=== PATIENT | male | born 1970 | race Caucasian/White ===

== ENCOUNTER → 2017-02-13 | Outpatient (REF) | payer BC ==
[~2017-02-13] MED LIST: FISH100049 PO; LISI20TA PO
[2017-02-13 20:41] LABS: ALBUMIN 4.3 GM/DL (3.2-5.2); ALBUMIN/GLOBULIN RATIO 1.39 (1.00-1.93); ALKALINE PHOSPHATASE 71 U/L (45-117); ALT/SGPT 90 U/L (12-78); ANION GAP 10 MEQ/L (8-16); AST/SGOT 60 U/L (15-37); BILIRUBIN,TOTAL 0.9 MG/DL (0.2-1.0); BLOOD UREA NITROGEN 21 MG/DL (7-18); CALCIUM LEVEL 9.1 MG/DL (8.5-10.1); CARBON DIOXIDE LEVEL 29 MEQ/L (21-32); CHLORIDE LEVEL 101 MEQ/L (98-107); CHOLESTEROL LEVEL 234 MG/DL (<200); CREATININE FOR GFR 1.03 MG/DL (0.70-1.30); GLOMERULAR FILTRATION RATE > 60.0 (>60); GLUCOSE, FASTING 67 MG/DL (70-105); MAGNESIUM LEVEL 2.2 MG/DL (1.8-2.4); POTASSIUM SERUM 3.4 MEQ/L (3.5-5.1); SODIUM LEVEL 140 MEQ/L (136-145); TOTAL PROTEIN 7.4 GM/DL (6.4-8.2); TRIGLYCERIDES LEVEL 207 MG/DL (<150)
== END ==
LOC: M SFHCPLAZ 15:15
PROVIDERS: ATTEND Internal Medicine
DX: E78.00 Pure hypercholesterolemia, unspecified (principal); I10 Essential (primary) hypertension

== ENCOUNTER 2017-04-10 12:44 | Day surgery (SDC) | payer BC ==
[~2017-04-10] VITALS: Ht 185.4 cm; Wt 115.7 kg
[2017-04-10] MEDS ORDERED: LR 1,000 ML IV SCH ×3 (13:00→19:15)
[2017-04-10] MEDS ORDERED: fentaNYL 100 MCG/2 ML INJECTION (J3010) As Ordered ONE ×2 (15:57→17:10)
[2017-04-10] MEDS ORDERED: MIDAZOLAM INJ 2 MG/2 ML VIAL (J2250) As Ordered ONE (15:57)
[2017-04-10] MEDS ORDERED: BUPIVACAINE HCL 0.5% 10 ML VIAL As Ordered ONE (16:05)
[2017-04-10] MEDS ORDERED: METOCLOPRAMIDE INJ 10MG/2ML VIAL (J2765) As Ordered ONE (17:09)
[2017-04-10] MEDS ORDERED: LIDOCAINE 2% INJ 100 MG/5 ML SDV (FOR ANES.) As Ordered ONE (17:09)
[2017-04-10] MEDS ORDERED: ONDANSETRON 4MG/2ML VIAL (J2405) As Ordered ONE (17:09)
[2017-04-10] MEDS ORDERED: PROPOFOL 200 MG/20 ML VIAL As Ordered ONE (17:09)
[2017-04-10] MEDS ORDERED: MORPHINE 2 MG/ML 1ML SYRINGE IV PRN (19:15)
[2017-04-10] MEDS ORDERED: METOCLOPRAMIDE INJ 10MG/2ML VIAL (J2765) IV PRN (19:15)
[2017-04-10] MEDS ORDERED: ONDANSETRON 4MG/2ML VIAL (J2405) IV PRN (19:15)
[2017-04-10] MEDS: PERCOCET 5MG/325MG TAB PO PRN ×2 (19:20→19:49)
[2017-04-10] MEDS: fentaNYL 100 MCG/2 ML INJECTION (J3010) IV PRN ×4 (19:20→19:41)
[2017-04-10 21:00] VITALS: BP 161/78
--- NOTE | 2017-04-11 06:51 | RO ---
DATE OF PROCEDURE: 04/10/2017 PREPROCEDURE DIAGNOSIS: Right distal biceps tendon rupture. POSTPROCEDURE DIAGNOSIS: Right distal biceps tendon rupture. PROCEDURE: Right open distal biceps tendon repair. SURGEON: Dr. Gopi Nation. CONE SEWER: Dr. Betsey Schneider. ANESTHESIA: General. IV FLUIDS: Lactated ringers. ESTIMATED BLOOD LOSS: 50 mL. IMPLANTS: Arthrex distal biceps tendon button and interference screw. CLOSURE: Nylon. INDICATION: Marbin is a 46-year-old male that suffered a right elbow injury while pushing a heavy log on 03/30/2017. He felt a pop and had immediate asymmetry in his upper arm. Physical exam demonstrated a positive hook test and weakness with supination. An MRI was ordered which showed a distal biceps tendon rupture. Given his young age and activity level, after discussing operative and nonoperative management, we agreed on operative management. We discussed the risks and benefits of distal biceps tendon repair and written informed consent was obtained. PROCEDURE: The patient was identified in preoperative holding area and the right arm was initialed by myself. He was brought to the operating room and placed supine on a well padded OR table. General anesthesia induced without complication. Appropriate IV antibiotics were given within 1 hour of incision. The right arm was positioned on a hand table. The right arm was then prepped and draped in the normal sterile fashion. Prior to incision, a time out was performed in which myself and all OR staff confirmed the patient's name, medical record number, date of and the correct side, site and procedure. A 3 cm transverse incision was made with the 15 blade about three fingerbreadths distal to the elbow flexion crease. Superficial dissection with Metzenbaum scissors and electrocautery for hemostasis. Superficial fascia was opened with Metzenbaum scissors. The interval between the brachial radialis and pronator was developed with Metzenbaum scissors and then with blunt dissection as the forearm was held in supination, I was able to palpate the radial tuberosity. [place] retractors positioned taking care to avoid excess traction on the lateral antebrachial cutaneous nerve. A [place] elevator was used to palpate the tuberosity and then a [place] elevator used to clear remaining biceps tendon and fascia off the tuberosity. There was one thin strand about 4 mm thickness of tendon and tendon sheath on the far ulnar aspect of the tuberosity but otherwise the tuberosity was bare. Blunt dissection in the antecubital fossa to palpate the tendon but I was unable to do so. Given that this was already 12 days out, I made a second transverse incision about 1.5 cm in length three fingerbreadths proximal to the elbow flexion crease. There was already a rent in the overlying fascia and I was able to immediately identify the ruptured end of the biceps tendon. The tendon was retrieved through the proximal incision and degenerative fatty tissue was trimmed to a more normal appearing tendon. The Arthrex distal biceps kit was opened and the fiber loop used to place a running locking whip stitch through the distal 2.5 cm of the tendon. The FiberWire sutures were then passed from the proximal to the distal incision where they were loaded through the button per routine. The forearm was held in supination and [place] retractors placed and the speed tip guide pin was drilled unicortically into the radial tuberosity. Position was checked on the mini C-arm and it was touched distal and ulnar so it was repositioned so it was just distal to the mid point and still ulnar to the mid point. The patient's radial tuberosity was actually quite ulnar requiring significant supination. The guide pin was then drilled bicortically in this better position and the 8 mm cannulated reamer was used to create a unicortical socket. Then extensive irrigation to remove bony debris. The button was then passed with its internist medical doctor md through the drill hole and the sutures were toggled which flipped the button. The elbow was flexed to 30 degrees and the tendon was docked into the socket. A free needle was used to pass one limb of the FiberWire back through the tendon and lock the construct in place. Knots were tied by hand. The tenodesis truck driver's offsider was then used to pass a limb of the FiberWire through the truck driver's offsider the tenodesis screw was inserted. The screw was positioned at the radial aspect in the drill hole which placed the final position of the tendon at the far ulnar aspect. There was good fixation of the screw. FiberWire sutures were again tied over the screw and then trimmed and discarded. Both incisions were then extensively irrigated with normal saline. Incisions were closed with #2-0 Vicryl for the forearm fascia and then subcuticular #2-0 Vicryl and a running #3-0 Nylon. Proximal incision was closed with #2-0 Vicryl and #3-0 Nylon. I injected 10 mL of 0.50% Marcaine without epinephrine. No tourniquet was used. Bulky sterile bandage applied. The patient was placed into a well padded posterior long arm splint, placed into a sling. All counts correct times two. COMPLICATIONS: None. DISPOSITION: The patient was transferred to the postanesthesia care unit in stable condition.
--- NOTE | 2017-04-11 08:03 | REP ---
Intraoperative fluoroscopic views during surgery for ruptured biceps tendon. There are a total of three views. Fluoroscopic exposure time is 19.8 seconds. Fluoroscopic images are performed with last image hold technology. These images require no additional radiation. Signed by Alex Vargas MD 04/11/2017 07:55 A
== END 2017-04-10 21:10 | disposition home or self-care (01) ==
LOC: M SDC 12:44
PROVIDERS: ATTEND Orthopaedic Surgery
DX: S46.211A Strain of muscle, fascia and tendon of other parts of biceps, right arm, initial encounter (principal); X50.0XXA Overexertion from strenuous movement or load, initial encounter; Y92.89 Other specified places as the place of occurrence of the external cause; Y99.9 Unspecified external cause status; I10 Essential (primary) hypertension; Z79.899 Other long term (current) drug therapy; Y93.89 Activity, other specified
CPT/HCPCS: 24342; 73030; C1713; J0690; J2250; J2405; J2765; J3010

== ENCOUNTER → 2017-08-19 | Outpatient (REF) | payer BC ==
[2017-08-19 12:26] LABS: ALBUMIN/GLOBULIN RATIO 1.25 (1.00-1.93); ALKALINE PHOSPHATASE 77 U/L (45-117); ALT/SGPT 71 U/L (12-78); ANION GAP 7 MEQ/L (8-16); AST/SGOT 84 U/L (7-37); BILIRUBIN,TOTAL 0.6 MG/DL (0.2-1.0); BLOOD UREA NITROGEN 21 MG/DL (7-18); CALCIUM LEVEL 8.7 MG/DL (8.5-10.1); CARBON DIOXIDE LEVEL 30 MEQ/L (21-32); CHLORIDE LEVEL 103 MEQ/L (98-107); CHOLESTEROL LEVEL 181 MG/DL (<200); CHOLESTEROL RISK RATIO 4.525 (<5); CREATININE FOR GFR 1.02 MG/DL (0.70-1.30); GLOMERULAR FILTRATION RATE > 60.0 (>60); GLUCOSE, FASTING 99 MG/DL (70-100); HDL CHOLESTEROL 40 MG/DL (>40); LDL CHOLESTEROL 95.4 MG/DL (<100); MAGNESIUM LEVEL 2.1 MG/DL (1.8-2.4); NON-HDL-C 141 MG/DL; POTASSIUM SERUM 4.2 MEQ/L (3.5-5.1); SODIUM LEVEL 140 MEQ/L (136-145); TOTAL PROTEIN 7.2 GM/DL (6.4-8.2); TRIGLYCERIDES LEVEL 228 MG/DL (<150)
[2017-08-21 10:50] LABS: HEPATITIS C VIRUS ABY INDEX 0.1 INDEX (<0.8)
== END ==
LOC: M SFHCPLAZ 07:42
DX: I10 Essential (primary) hypertension (principal); K76.0 Fatty (change of) liver, not elsewhere classified; E78.00 Pure hypercholesterolemia, unspecified
CPT/HCPCS: 83735

== ENCOUNTER → 2018-11-17 | Outpatient (REF) | payer BC ==
[2018-11-17 13:17] LABS: ALBUMIN 4.2 GM/DL (3.2-5.2); ALT/SGPT 63 U/L (12-78); BILIRUBIN,TOTAL 0.7 MG/DL (0.2-1.0); BLOOD UREA NITROGEN 20 MG/DL (7-18); CALCIUM LEVEL 8.8 MG/DL (8.5-10.1); CARBON DIOXIDE LEVEL 29 MEQ/L (21-32); CHLORIDE LEVEL 105 MEQ/L (98-107); CHOLESTEROL LEVEL 207 MG/DL (<200); CREATININE FOR GFR 1.11 MG/DL (0.70-1.30); GLOMERULAR FILTRATION RATE > 60.0 (>60); GLUCOSE, FASTING 103 MG/DL (70-100); HDL CHOLESTEROL 45 MG/DL (>40); LDL CHOLESTEROL 122 MG/DL (<100); MAGNESIUM LEVEL 2.1 MG/DL (1.8-2.4); NON-HDL-C 162 MG/DL; POTASSIUM SERUM 4.4 MEQ/L (3.5-5.1); SODIUM LEVEL 139 MEQ/L (136-145); TRIGLYCERIDES LEVEL 202 MG/DL (<150)
== END ==
LOC: M SFHCPLAZ 08:06
PROVIDERS: ATTEND Internal Medicine
DX: I10 Essential (primary) hypertension (principal); E78.00 Pure hypercholesterolemia, unspecified

== ENCOUNTER 2019-01-15 07:17 | Day surgery (SDC) | payer BC ==
[~2019-01-15] VITALS: Ht 185.4 cm; Wt 120.2 kg
[~2019-01-15 07:17] MED LIST changes: +NS 1,000 ML IV ONE; +PROPOFOL 200 MG/20 ML VIAL As Ordered ONE
--- NOTE | 2019-01-15 08:53 | ROOR ---
Patient Name: Marbin Matias Procedure Date: 01/15/2019 8:29 AM Date of : 1970 Age: 48 Room: [facility] Gender: Male Note Status: Finalized Procedure: Colonoscopy Indications: High risk colon cancer surveillance: Personal history of colonic polyps, Family history of advanced adenoma of the colon in a first-degree relative Providers: Dyllan GONZALEZ MD Referring MD: Stanley Smith MD Requesting Provider: Medicines: Monitored Anesthesia Care Complications: No immediate complications. Procedure: Pre-Anesthesia Assessment: - The heart rate, respiratory rate, oxygen saturations, blood pressure, adequacy of pulmonary ventilation, and response to care were monitored throughout the procedure. The Colonoscope was introduced through the anus and advanced to the terminal ileum, with identification of the appendiceal orifice and IC valve. The colonoscopy was performed without difficulty. The patient tolerated the procedure well. The quality of the bowel preparation was good. Findings: The perianal and digital rectal examinations were normal. Small Internal Hemorrhoids. The entire examined colon appeared normal on direct and retroflexion views. Impression: - Small Internal Hemorrhoids. - The entire examined colon is normal on direct and retroflexion views. - No specimens collected. Recommendation: - Repeat colonoscopy in 5 years for screening purposes. Dyllan Gonzalez MD Dyllan GONZALEZ MD 01/15/2019 8:53:38 AM Electronically signed by Dyllan GONZALEZ MD Number of Addenda: 0 Note Initiated On: 01/15/2019 8:29 AM Estimated Blood Loss: Estimated blood loss: none.
[2019-01-15 09:10] VITALS: BP 139/87
== END 2019-01-15 09:29 | disposition home or self-care (01) ==
LOC: M OPP 07:17
PROVIDERS: ATTEND Internal Medicine Gastroenterology
DX: K64.8 Other hemorrhoids (principal); Z79.899 Other long term (current) drug therapy; Z12.11 Encounter for screening for malignant neoplasm of colon; Z86.010 Personal history of colon polyps; Z83.71 Family history of colonic polyps

== ENCOUNTER → 2019-07-21 | Outpatient (REF) | payer BC ==
[~2019-07-21] MED LIST changes: -LISI20TA PO; +LISI20TA19 PO; -NS 1,000 ML IV ONE; -PROPOFOL 200 MG/20 ML VIAL As Ordered ONE
[2019-07-21 12:11] LABS: ALBUMIN 4.1 GM/DL (3.2-5.2); ALT/SGPT 69 U/L (12-78); BILIRUBIN,TOTAL 0.9 MG/DL (0.2-1.0); BLOOD UREA NITROGEN 25 MG/DL (7-18); CALCIUM LEVEL 9.3 MG/DL (8.5-10.1); CARBON DIOXIDE LEVEL 28 MEQ/L (21-32); CHLORIDE LEVEL 101 MEQ/L (98-107); CHOLESTEROL LEVEL 191 MG/DL (<200); CHOLESTEROL RISK RATIO 5.162 (<5); CREATININE FOR GFR 1.18 MG/DL (0.70-1.30); GLOMERULAR FILTRATION RATE > 60.0 (>60); GLUCOSE, FASTING 96 MG/DL (70-100); HDL CHOLESTEROL 37 MG/DL (>40); LDL CHOLESTEROL 106 MG/DL (<100); MAGNESIUM LEVEL 2.3 MG/DL (1.8-2.4); NON-HDL-C 154 MG/DL; SODIUM LEVEL 138 MEQ/L (136-145); TOTAL PROTEIN 7.5 GM/DL (6.4-8.2); TRIGLYCERIDES LEVEL 239 MG/DL (<150)
== END ==
LOC: M LABWUC 10:08
PROVIDERS: ATTEND Internal Medicine
DX: I10 Essential (primary) hypertension (principal); E78.00 Pure hypercholesterolemia, unspecified

== ENCOUNTER → 2020-04-07 | Outpatient (CLI) | payer BC ==
[~2020-04-07] MED LIST changes: -LISI20TA19 PO; +LISI20TA35 PO
[2020-04-07 11:06] LABS: HEMATOCRIT 50.6 % (42.0-52.0); HEMOGLOBIN 17.1 g/dl (13.5-17.5); MEAN CORPUSCULAR HEMOGLOBIN 30.2 pg (27.0-33.0); MEAN CORPUSCULAR HGB CONC 33.8 g/dl (32.0-36.5); MEAN CORPUSCULAR VOLUME 89.4 fl (80.0-96.0); PLATELET COUNT, AUTOMATED 218 10^3/uL (150-450); RED BLOOD COUNT 5.66 10^6/uL (4.30-6.10); WHITE BLOOD COUNT 6.2 10^3/uL (4.0-10.0)
[2020-04-07 11:29] LABS: ALBUMIN 4.1 GM/DL (3.2-5.2); ALT/SGPT 81 U/L (12-78); BILIRUBIN,TOTAL 0.7 MG/DL (0.2-1.0); BLOOD UREA NITROGEN 21 MG/DL (7-18); CALCIUM LEVEL 9.2 MG/DL (8.5-10.1); CARBON DIOXIDE LEVEL 30 MEQ/L (21-32); CHLORIDE LEVEL 105 MEQ/L (98-107); CHOLESTEROL LEVEL 197 MG/DL (<200); CHOLESTEROL RISK RATIO 4.581 (<5); CREATININE FOR GFR 1.14 MG/DL (0.70-1.30); GLOMERULAR FILTRATION RATE > 60.0 (>60); GLUCOSE, FASTING 99 MG/DL (70-100); HDL CHOLESTEROL 43 MG/DL (>40); LDL CHOLESTEROL 110 MG/DL (<100); NON-HDL-C 154 MG/DL; POTASSIUM SERUM 4.3 MEQ/L (3.5-5.1); SODIUM LEVEL 137 MEQ/L (136-145); TOTAL PROTEIN 7.3 GM/DL (6.4-8.2); TRIGLYCERIDES LEVEL 220 MG/DL (<150)
== END ==
LOC: M WUC 08:07
PROVIDERS: ATTEND Internal Medicine
DX: I10 Essential (primary) hypertension (principal); K76.0 Fatty (change of) liver, not elsewhere classified; E78.00 Pure hypercholesterolemia, unspecified

== ENCOUNTER → 2020-11-28 | Outpatient (CLI) | payer BC ==
[2020-11-28 14:29] LABS: ALBUMIN 3.7 GM/DL (3.2-5.2); ALT/SGPT 60 U/L (12-78); BILIRUBIN,TOTAL 0.8 MG/DL (0.2-1.0); BLOOD UREA NITROGEN 16 MG/DL (7-18); CALCIUM LEVEL 8.4 MG/DL (8.5-10.1); CARBON DIOXIDE LEVEL 27 MEQ/L (21-32); CHLORIDE LEVEL 105 MEQ/L (98-107); CHOLESTEROL LEVEL 170 MG/DL (<200); CHOLESTEROL RISK RATIO 4.146 (<5); CREATININE FOR GFR 0.93 MG/DL (0.70-1.30); GLOMERULAR FILTRATION RATE > 60.0 (>60); GLUCOSE, FASTING 97 MG/DL (70-100); HDL CHOLESTEROL 41 MG/DL (>40); LDL CHOLESTEROL 86 MG/DL (<100); MAGNESIUM LEVEL 1.8 MG/DL (1.8-2.4); NON-HDL-C 129 MG/DL; POTASSIUM SERUM 4.4 MEQ/L (3.5-5.1); SODIUM LEVEL 138 MEQ/L (136-145); THYROID STIMULATING HORMONE 0.908 uIU/ML (0.358-3.740); TOTAL PROTEIN 6.9 GM/DL (6.4-8.2); TRIGLYCERIDES LEVEL 213 MG/DL (<150)
== END ==
LOC: M WUC 10:33
PROVIDERS: ATTEND Internal Medicine
DX: I10 Essential (primary) hypertension (principal); E78.00 Pure hypercholesterolemia, unspecified

== ENCOUNTER → 2021-07-04 | Outpatient (CLI) | payer BC ==
[2021-07-04 11:33] LABS: BASO % 0.5 % (0.0-1.0); EOS # 0.2 10^3/uL (0.0-0.5); HEMATOCRIT 49.7 % (42.0-52.0); HEMOGLOBIN 16.8 g/dl (13.5-17.5); LYMPH # 2.1 10^3/uL (1.5-5.0); LYMPH % 31.8 % (24.0-44.0); MEAN CORPUSCULAR HEMOGLOBIN 30.4 pg (27.0-33.0); MEAN CORPUSCULAR HGB CONC 33.8 g/dl (32.0-36.5); MEAN CORPUSCULAR VOLUME 89.9 fl (80.0-96.0); MONO # 0.7 10^3/uL (0.0-0.8); MONO % 10.2 % (2.0-8.0); NEUTROPHILS # 3.5 10^3/uL (1.5-8.5); PLATELET COUNT, AUTOMATED 215 10^3/uL (150-450); RED BLOOD COUNT 5.53 10^6/uL (4.30-6.10); WHITE BLOOD COUNT 6.4 10^3/uL (4.0-10.0)
[2021-07-04 12:06] LABS: ALBUMIN 3.8 GM/DL (3.2-5.2); ALT/SGPT 71 U/L (12-78); BILIRUBIN,TOTAL 0.7 MG/DL (0.2-1.0); BLOOD UREA NITROGEN 22 MG/DL (7-18); CALCIUM LEVEL 8.8 MG/DL (8.5-10.1); CARBON DIOXIDE LEVEL 27 MEQ/L (21-32); CHLORIDE LEVEL 107 MEQ/L (98-107); CHOLESTEROL LEVEL 190 MG/DL (<200); CREATININE FOR GFR 1.08 MG/DL (0.70-1.30); GLOMERULAR FILTRATION RATE > 60.0 (>60); GLUCOSE, FASTING 105 MG/DL (70-100); HDL CHOLESTEROL 38 MG/DL (>40); LDL CHOLESTEROL 107 MG/DL (<100); MAGNESIUM LEVEL 2.3 MG/DL (1.8-2.4); NON-HDL-C 152 MG/DL; SODIUM LEVEL 140 MEQ/L (136-145); TOTAL PROTEIN 6.8 GM/DL (6.4-8.2); TRIGLYCERIDES LEVEL 227 MG/DL (<150)
== END ==
LOC: M WUC 08:33
PROVIDERS: ATTEND Internal Medicine
DX: I10 Essential (primary) hypertension (principal); E78.00 Pure hypercholesterolemia, unspecified; Z86.010 Personal history of colon polyps

== ENCOUNTER → 2022-05-01 | Outpatient (CLI) | payer BC ==
[2022-05-01 13:29] LABS: ALT/SGPT 118 U/L (12-78); BILIRUBIN,TOTAL 0.5 MG/DL (0.2-1.0); BLOOD UREA NITROGEN 21 MG/DL (7-18); CALCIUM LEVEL 8.9 MG/DL (8.5-10.1); CARBON DIOXIDE LEVEL 29 MEQ/L (21-32); CHLORIDE LEVEL 101 MEQ/L (98-107); CHOLESTEROL LEVEL 188 MG/DL (<200); CREATININE FOR GFR 0.96 MG/DL (0.70-1.30); GLOMERULAR FILTRATION RATE > 60.0 (>60); GLUCOSE, FASTING 102 MG/DL (70-100); SODIUM LEVEL 135 MEQ/L (136-145); TRIGLYCERIDES LEVEL 215 MG/DL (<150)
[2022-05-01 13:30] LABS: ALBUMIN 3.7 GM/DL (3.2-5.2); CHOLESTEROL RISK RATIO 5.875 (<5); HDL CHOLESTEROL 32 MG/DL (>40); LDL CHOLESTEROL 113 MG/DL (<100); MAGNESIUM LEVEL 2.2 MG/DL (1.8-2.4); NON-HDL-C 156 MG/DL; TOTAL PROTEIN 7.1 GM/DL (6.4-8.2)
== END ==
LOC: M WUC 09:09
PROVIDERS: ATTEND Internal Medicine
DX: E78.00 Pure hypercholesterolemia, unspecified (principal); I10 Essential (primary) hypertension; Z12.5 Encounter for screening for malignant neoplasm of prostate
CPT/HCPCS: 36415; 80053; 80061; 83735; G0103

== ENCOUNTER → 2023-05-02 | Outpatient (CLI) | payer BC, OTHER ==
[2023-05-02 09:40] LABS: HEMATOCRIT 49.8 % (42.0-52.0); HEMOGLOBIN 17.3 g/dl (13.5-17.5); MEAN CORPUSCULAR HEMOGLOBIN 31.4 pg (27.0-33.0); MEAN CORPUSCULAR HGB CONC 34.7 g/dl (32.0-36.5); MEAN CORPUSCULAR VOLUME 90.4 fl (80.0-96.0); PLATELET COUNT, AUTOMATED 202 10^3/uL (150-450); RED BLOOD COUNT 5.51 10^6/uL (4.30-6.10); WHITE BLOOD COUNT 6.2 10^3/uL (4.0-10.0)
[2023-05-02 09:59] LABS: HEMOGLOBIN A1c 4.9 % (4.0-6.0)
[2023-05-02 10:14] LABS: CREATININE, URINE 226.6 MG/DL; MAU/CREAT RATIO 2.2 MCG/MG (0.0-30.0)
[2023-05-02 10:16] LABS: ALKALINE PHOSPHATASE 68 U/L (46-116); ALT/SGPT 52 U/L (7.0-40); AST/SGOT 42 U/L (<34); BLOOD UREA NITROGEN 19 MG/DL (9-23); CALCIUM LEVEL 8.9 MG/DL (8.5-10.1); CARBON DIOXIDE LEVEL 27 MMOL/L (20-31); CHLORIDE LEVEL 104 MMOL/L (98-107); CHOLESTEROL LEVEL 193 MG/DL (<200); CHOLESTEROL RISK RATIO 4.29 (<5); CREATININE FOR GFR 0.99 MG/DL (0.70-1.30); GLOMERULAR FILTRATION RATE > 60.0 (>56); GLUCOSE, FASTING 88 MG/DL (60-100); HDL CHOLESTEROL 44.9 MG/DL (>40); LDL CHOLESTEROL 115.9 MG/DL (<100); NON-HDL-C 148.1 MG/DL; SODIUM LEVEL 138 MMOL/L (136-145); TOTAL PROTEIN 6.9 G/DL (5.7-8.2); TRIGLYCERIDES LEVEL 161 MG/DL (<150)
[2023-05-02 10:17] LABS: TOTAL 25(OH) VITAMIN D 20.9 NG/ML (20.0-100.0); VITAMIN B12 LEVEL 571 PG/ML (211-911)
[2023-05-02 10:18] LABS: FREE T4 1.17 NG/DL (0.89-1.76); THYROID STIMULATING HORMONE 1.324 uIU/ML (0.55-4.78)
[2023-05-03 15:07] LABS: INSULIN LEVEL 11.6 uIU/mL (2.6-24.9); LIPOPROTEIN (a) 14.9 nmol/L (<75.0)
== END ==
LOC: M WUC 08:17
PROVIDERS: ATTEND Internal Medicine Hematology
DX: K76.0 Fatty (change of) liver, not elsewhere classified (principal)

== ENCOUNTER → 2023-06-06 | Outpatient (CLI) | payer OTHER | LOC: M SLEEP HO 11:25 | PROVIDERS: ATTEND Internal Medicine Hematology | DX: G47.33 Obstructive sleep apnea (adult) (pediatric) (principal) ==

== ENCOUNTER → 2024-07-13 | Outpatient (CLI) | payer OTHER ==
[~2024-07-13] MED LIST changes: +AMLO1TAB24 PO
[2024-07-13 10:08] LABS: BASO # 0.1 10^3/uL (0.0-0.2); BASO % 1.1 % (0.0-1.0); EOS # 0.2 10^3/uL (0.0-0.5); EOS % 3.1 % (0.0-3.0); HEMATOCRIT 52.7 % (42.0-52.0); HEMOGLOBIN 18.3 g/dl (13.5-17.5); LYMPH # 1.9 10^3/uL (1.5-5.0); LYMPH % 26.5 % (24.0-44.0); MEAN CORPUSCULAR HEMOGLOBIN 31.5 pg (27.0-33.0); MEAN CORPUSCULAR HGB CONC 34.7 g/dl (32.0-36.5); MEAN CORPUSCULAR VOLUME 90.7 fl (80.0-96.0); MONO # 0.9 10^3/uL (0.0-0.8); MONO % 11.7 % (2.0-8.0); NEUTROPHILS # 4.2 10^3/uL (1.5-8.5); NEUTROPHILS % 57.2 % (36.0-66.0); PLATELET COUNT, AUTOMATED 222 10^3/uL (150-450); RED BLOOD COUNT 5.81 10^6/uL (4.30-6.10); WHITE BLOOD COUNT 7.3 10^3/uL (4.0-10.0)
[2024-07-13 10:12] LABS: C REACTIVE PROTEIN QUANTITATIV < 0.50 MG/DL (<1.0)
[2024-07-13 10:33] LABS: ALBUMIN 4.4 G/DL (3.2-5.2); ALKALINE PHOSPHATASE 67 U/L (40-129); ALT/SGPT 65 U/L (7.0-40); AST/SGOT 41 U/L (<34); BILIRUBIN,TOTAL 1.2 MG/DL (0.3-1.2); BLOOD UREA NITROGEN 23 MG/DL (9-23); CALCIUM LEVEL 9.6 MG/DL (8.5-10.1); CARBON DIOXIDE LEVEL 30 MMOL/L (20-31); CHLORIDE LEVEL 101 MMOL/L (98-107); CHOLESTEROL LEVEL 222 MG/DL (<200); CHOLESTEROL RISK RATIO 4.31 (<5); CREATININE FOR GFR 1.05 MG/DL (0.70-1.30); FREE T4 1.29 NG/DL (0.89-1.76); GLOMERULAR FILTRATION RATE > 60.0 (>56); GLUCOSE, FASTING 107 MG/DL (60-100); HDL CHOLESTEROL 51.4 MG/DL (>40); LDL CHOLESTEROL 141.4 MG/DL (<100); NON-HDL-C 170.6 MG/DL; POTASSIUM SERUM 4.7 MMOL/L (3.5-5.1); PSA SCREENING 1.18 NG/ML (< 4.00); SODIUM LEVEL 139 MMOL/L (136-145); TOTAL 25(OH) VITAMIN D 22.5 NG/ML (20.0-100.0); TOTAL PROTEIN 7.7 G/DL (5.7-8.2); TRIGLYCERIDES LEVEL 146 MG/DL (<150); VITAMIN B12 LEVEL 736 PG/ML (211-911)
[2024-07-13 10:37] LABS: HEMOGLOBIN A1c 5.5 % (4.0-6.0)
[2024-07-13 10:39] LABS: MALB URINE SIEMENS < 3.0 MG/L
== END ==
LOC: M WUC 08:17
PROVIDERS: ATTEND Internal Medicine Hematology
DX: Z00.00 Encounter for general adult medical examination without abnormal findings (principal)
CPT/HCPCS: 36415; 80053; 80061; 82043; 82306; 82607; 83036; 83525; 84439; 84443; 85025; 86140; G0103

== ENCOUNTER 2024-08-13 06:30 | Day surgery (SDC) | payer OTHER ==
[~2024-08-13] VITALS: Ht 185.4 cm; Wt 116.8 kg
[~2024-08-13 06:30] MED LIST changes: +LIDOCAINE 2% 100MG/5ML SDV (FOR ANES.) As Ordered ONE; +propofoL 200 MG/20 ML VIAL As Ordered ONE
[2024-08-13] MEDS ORDERED: GLYCOPYRROLATE INJ 0.2 MG/ML 2 ML VIAL As Ordered ONE (06:53)
[2024-08-13 08:01] VITALS: TEMP 97.4
[2024-08-13 08:22] VITALS: BP 116/60; O2SAT 96
== END 2024-08-13 08:31 | disposition home or self-care (01) ==
LOC: M OPP 06:30
PROVIDERS: ATTEND Internal Medicine Gastroenterology
DX: D12.2 Benign neoplasm of ascending colon (principal); K57.30 Diverticulosis of large intestine without perforation or abscess without bleeding; K64.8 Other hemorrhoids; Z83.710 Family history of adenomatous and serrated polyps; Z86.0100 Personal history of colon polyps, unspecified; Z87.891 Personal history of nicotine dependence; Z79.899 Other long term (current) drug therapy
CPT/HCPCS: 45385; 88305; J1596

== ENCOUNTER → 2025-04-29 | Outpatient (CLI) | payer OTHER ==
[~2025-04-29] MED LIST changes: -LIDOCAINE 2% 100MG/5ML SDV (FOR ANES.) As Ordered ONE; -propofoL 200 MG/20 ML VIAL As Ordered ONE
[2025-04-29 15:17] LABS: ALT/SGPT 35 U/L (7.0-40); AST/SGOT 30 U/L (<34); CALCIUM LEVEL 9.5 MG/DL (8.5-10.1); CARBON DIOXIDE LEVEL 28 MMOL/L (20-31); CHLORIDE LEVEL 102 MMOL/L (98-107); CREATININE FOR GFR 0.96 MG/DL (0.70-1.30); GLOMERULAR FILTRATION RATE > 90.0 (>56); POTASSIUM SERUM 4.3 MMOL/L (3.5-5.1); SODIUM LEVEL 141 MMOL/L (136-145)
== END ==
LOC: M WUC 12:36
PROVIDERS: ATTEND Student in an Organized Health Care Education/Training Program
DX: K76.0 Fatty (change of) liver, not elsewhere classified (principal)